=== PATIENT | female | born 1990 | race Caucasian/White ===

== ENCOUNTER 2024-04-20 12:54 | Emergency (ER) | payer OTHER, SELFPAY ==
[2024-04-20] MEDS: BALANCED SALT SOLN OPHTH IRRIG 30 ML BTL 5 ML RIGHT EYE (13:35)
[2024-04-20] MEDS: FLUORESCEIN SOD 1 MG/STRIP EACH EYE (13:35)
[2024-04-20] MEDS: TETRACAINE HCL 0.5% OPHTH SOLN 4 ML BTL 1 DROP RIGHT EYE (13:35)
--- NOTE | 2024-04-20 13:45 | PC.NURSE ---
PT REPORTS DID USE NUMBING DROPS ONE HOUR AGO AT WORK DUE TO EYE FEELING PAINFUL. THIS RN UNABLE TO READ NAME OF EYEDROPS. [employer] STICKER. RAMONA BELLO LINE CONTROLLER NOTIFIED.
--- NOTE | 2024-04-20 13:59 | ED.GENADULT ---
HPI - General Adult General Chief complaint: Eye Problems Stated complaint: right eye Source: patient Mode of arrival: ambulatory Limitations: no limitations History of Present Illness HPI narrative: Patient presents for evaluation of right eye irritation for the last 5 days. She indicates her child had symptoms consistent with conjunctivitis. She has been unable to get him in to see the senior oracle applications developer and is currently working on it. She went to [facility] on Tuesday of this week. She was given a script for cipro gtts which she has been using. She has also tried visine and proparacaine. She does wear glasses or contacts. She reports persistent redness in the right eye. She has been waking from sleep in the morning with her right eye crusted shut. She has some slight blurred vision on the right now. Denies significant pain or pruritis. Denies sensation of foreign body in the right eye. Related Data Home Medications Medication Instructions Recorded Confirmed metoclopramide HCl 10 mg tablet 10 mg PO TID PRN Nausea 04/20/24 04/20/24 Allergies Allergy/AdvReac Type Severity Reaction Status Date / Time No Known Allergies Allergy Verified 04/20/24 13:15 Review of Systems Review of Systems: CONSTITUTIONAL: Denies fever, chills, or sweats. EYES: Reports redness and irritation in right eye, Reports slight blurred vision on right. Denies decision of foreign body in the eye. Denies significant pain or pruritus ENT: Denies rhinorrhea, congestion, sore throat, or otalgia. CARDIOVASCULAR: Denies chest pain, palpitations, or edema. RESPIRATORY: Denies cough or dyspnea. GASTROINTESTINAL: Denies abdominal pain, nausea, vomiting, or diarrhea. GENITOURINARY: Denies dysuria or hematuria. SKIN: Denies rash or itching. MUSCULOSKELETAL: Denies back pain, joint pain, or myalgia. NEUROLOGIC: Denies headache, numbness, dizziness, or weakness. PSYCHIATRIC: Denies anxiety or depression. [facility] Past Medical History Medical History No pertinent past medical history Surgical History Surgical History No pertinent past surgical history Family History Family History Mother Family history non-contributory Social History Social History Substance use: never Living arrangements: with family Gender identity (if verbalized by the patient): Female Spiritual care concerns: No Exam Narrative: GENERAL: Well-appearing, well-nourished, and in no acute distress. HEAD: Normocephalic, atraumatic. EYES: PERRLA and EOMI. Right conjunctival injection. There is an area of dye uptake noted at the 8 to 9 o'clock position of the right eye when evaluated with fluorescein and Wood's lamp evaluation ENT: Nares clear, no rhinorrhea or epistaxis. Mucous membranes moist. Oropharynx without tonsillar hypertrophy exudate or other lesions. Bilateral TMs pearly lynne nonbulging NECK: Supple. No adenopathy or masses. No carotid bruits or JVD CHEST: Clear to auscultation. No respiratory distress. No wheezes rales or rhonchi HEART: Regular rate and rhythm. No murmur heard. Normal peripheral pulses. ABDOMEN: Soft, nontender, nondistended, normal active bowel sounds. EXTREMITIES: Normal range of motion. No edema. SKIN: Warm, dry, no rash. NEURO: No focal deficits. Alert and oriented x3. PSYCH: Normal mood and affect. Course Course Emergency Course: This is a 33-year-old female who presented for evaluation right eye irritation and redness. She has evidence of a corneal abrasion. Will treat with erythromycin. She can stop her Cipro. Her symptoms may be also be allergic in origin so will give her some Naphcon as well. She should follow up with primary provider go to the ER for worsenin
== END 2024-04-20 14:04 | disposition home or self-care (01) ==
PROVIDERS: Emergency Provider Nurse Practitioner
DX: H10.9 Unspecified conjunctivitis (principal); S05.01XA Injury of conjunctiva and corneal abrasion without foreign body, right eye, initial encounter; X58.XXXA Exposure to other specified factors, initial encounter
CPT/HCPCS: 99213; A9270; G0463